=== PATIENT | female | born 1935 | race African-American/Black ===

== ENCOUNTER 2023-06-22 07:17 | Emergency (ER) | payer MEDICARE, BC ==
[~2023-06-22] VITALS: Ht 165.1 cm; Wt 91.0 kg
[2023-06-22 07:19] VITALS: O2SAT 98
[2023-06-22] MEDS ORDERED: ACETAMINOPHEN 325MG TABLET PO ONE (07:30)
[2023-06-22] MEDS ORDERED: TETANUS, DIPHTHERIA, PERTUSSIS VAC/PF 0.5ML (>10YR OLD) IM ONE ×2 (07:30→09:45)
[2023-06-22] MEDS ORDERED: ACETAMINOPHEN 325MG TABLET PO NR (09:45)
[2023-06-22] MEDS ORDERED: LIDOCAINE HCL 1% 20ML VIAL (Pyxis) INJ INFIL ONE (11:30)
[2023-06-22] MEDS ORDERED: ACET-2708 MT (12:31)
[2023-06-22 13:19] VITALS: BP 174/82; PULSE 84; RESP 16; TEMP 98.5
== END 2023-06-22 13:22 | disposition home or self-care (01) ==
LOC: ER 07:17
DX: S01.112A Laceration without foreign body of left eyelid and periocular area, initial encounter (principal); S09.90XA Unspecified injury of head, initial encounter; M79.641 Pain in right hand; I10 Essential (primary) hypertension; Z88.2 Allergy status to sulfonamides; Z88.6 Allergy status to analgesic agent; Z88.1 Allergy status to other antibiotic agents; Z88.5 Allergy status to narcotic agent; W18.30XA Fall on same level, unspecified, initial encounter; Y93.89 Activity, other specified; Y92.89 Other specified places as the place of occurrence of the external cause; Y99.8 Other external cause status
CPT/HCPCS: 99285; 70450; 71045; 73130; 72125; 90715; 93005; 12013; 90471; J3490

== ENCOUNTER 2023-06-29 10:19 | Emergency (ER) | payer MEDICARE, BC ==
[~2023-06-29] VITALS: Ht 157.5 cm; Wt 82.5 kg
[~2023-06-29 10:19] MED LIST: ACET-2708 MT
[2023-06-29 10:37] VITALS: BP 174/97; PULSE 103; RESP 16; TEMP 98.4; O2SAT 96
[2023-06-29] MEDS ORDERED: DOXY100C5 MT (11:38)
[2023-06-29] MEDS ORDERED: AMOX1TAB16 MT (11:38)
[2023-06-29] MEDS ORDERED: LIDO700A15 TP (11:39)
== END 2023-06-29 11:53 | disposition home or self-care (01) ==
LOC: ER 10:19
DX: J18.9 Pneumonia, unspecified organism (principal); I10 Essential (primary) hypertension; Z48.02 Encounter for removal of sutures; Z88.2 Allergy status to sulfonamides; Z88.1 Allergy status to other antibiotic agents; Z88.5 Allergy status to narcotic agent; Z88.6 Allergy status to analgesic agent
CPT/HCPCS: 71045; 99283